=== PATIENT | male | born 1955 | race Caucasian/White ===

== ENCOUNTER 2018-06-28 17:56 | Emergency (ER) | payer BC ==
[2018-06-28 18:06] VITALS: BP 145/75
--- NOTE | 2018-06-28 18:14 | EDM.PDOC ---
ED HPI GENERAL MEDICAL PROBLEM - General Chief Complaint: Lower Extremity Injury/Pain Stated Complaint: INJURED ANKLE Time Seen by Provider: 06/28/18 17:57 Source of Information: Reports: Patient History Limitations: Reports: No Limitations - History of Present Illness INITIAL COMMENTS - FREE TEXT/NARRATIVE: History of present illness: []Patient was no prostate 2 hours ago and rolled his right ankle. He is unable to bear weight on it and has a large amount of swelling over the lateral malleolus. Patient admits to drinking prior to this happening and he did take 4 ibuprofen prior to coming to the ED. Review of systems: As per history of present illness and below otherwise all systems reviewed and negative. Past medical history: As per history of present illness and as reviewed below otherwise noncontributory. Surgical history: As per history of present illness and as reviewed below otherwise noncontributory. Social history: No reported history of drug or alcohol abuse. Family history: As per history of present illness and as reviewed below otherwise noncontributory. Physical exam: General: Well developed, well nourished in NAD HEENT: Atraumatic, normocephalic, pupils reactive, negative for conjunctival pallor or scleral icterus, mucous membranes moist, throat clear, neck supple, nontender, trachea midline. Lungs: Clear to auscultation, breath sounds equal bilaterally, chest nontender. Heart: S1S2, regular, negative for clicks, rubs, or JVD. Abdomen: NABS, Soft, nondistended, nontender. Negative for masses or hepatosplenomegaly. Negative for costovertebral tenderness. Pelvis: Stable nontender. Genitourinary: Deferred. Rectal: Deferred. Extremities: Right ankle with swelling over the lateral malleolus with tenderness, there are no open lesions, pulses are palpable and sensory is intact., negative for cords or calf pain. Neurovascular unremarkable. Neuro: Awake, alert, oriented. Cranial nerves II through XII unremarkable. Cerebellum unremarkable. Motor and sensory unremarkable throughout. Exam nonfocal. Skin:warm and dry Diagnostics: X-ray right ankle- Mild likely posttraumatic arthrosis of the margins of the tibiotalar ankle joint. No acute fracture. Small likely chronic avulsion ossicle at the tip of the lateral malleolus on the mortise view. Marginal spurring. Lateral periarticular soft tissue swelling may be acute injury related. Os peroneum. Therapeutics: Ankle boot and pain meds ED Course: Unremarkable Impression: Right Ankle sprain Prescriptions: None Plan: Ice elevation and wear splint as directed, follow up with orthopedics or primary care as needed. Definitive disposition and diagnosis as appropriate pending reevaluation and review of above. Right Ankle Pain Score (Numeric/FACES): 6 - Related Data Allergies Allergy/AdvReac Type Severity Reaction Status Date / Time No Known Allergies Allergy Verified 06/28/18 18:02 Home Meds: Home Meds Fluticasone/Vilanterol [Breo Ellipta 100-25 MCG Inhalation Kit] 1 puff INH DAILY 03/10/16 [History] Past Medical History HEENT History: Reports: None Cardiovascular History: Reports: None Respiratory History: Reports: COPD, Other (See Below) Other Respiratory History: nodes on lungs Gastrointestinal History: Reports: None Genitourinary History: Reports: None Musculoskeletal History: Reports: None Neurological History: Reports: None Psychiatric History: Reports: None Endocrine/Metabolic History: Reports: None Hematologic History: Reports: None Immunologic History: Reports: None Oncologic (Cancer) History: Reports: None Dermatologic History: Reports: None - Infectious Disease History Infectious Disease History: Reports: Chicken Pox, Measles, Mumps - Past Surgical History Head Surgeries/Procedures: Reports: None HEENT Surgical History: Reports: Tonsillectomy Male Surgical History: Reports: Other (See Below) Neurological Surgical History: Reports: Lumbar Spine, Other (See Below) Musculoskeletal Surgical History: Reports: Arthroscopic Knee, Other (See Below) Social & Family History - Family History Family Medical History: Unobtainable - Tobacco Use Smoking Status *Q: Never Smoker - Caffeine Use Caffeine Use: Reports: Coffee - Recreational Drug Use Recreational Drug Use: No Review of Systems - Review of Systems Review Of Systems: ROS reveals no pertinent complaints other than HPI. ED EXAM, GENERAL - Physical Exam Exam: See Below (See history of present illness) Course - Vital Signs Last Recorded V/S: Last Vital Signs Temp 97.8 F 06/28/18 18:03 Pulse 76 06/28/18 18:03 Resp 17 06/28/18 18:03 BP 145/75 H 06/28/18 18:03 Pulse Ox 93 L 06/28/18 18:03 - Orders/Labs/Meds Orders: Active Orders 24 hr Category Date Time Status Splinting [RC] ASDIRECTED Care 06/28/18 18:34 Ordered Ankle Min 3V Rt [CR] Stat Exams 06/28/18 18:06 Taken Departure - Departure Time of Disposition: 18:37 Disposition: Home, Self-Care 01 Condition: Good Clinical Impression: Right ankle sprain Qualifiers: Encounter type: initial encounter Involved ligament of ankle: unspecified ligament Qualified Code(s): S93.401A - Sprain of unspecified ligament of right ankle, initial encounter - Discharge Information *PRESCRIPTION DRUG MONITORING PROGRAM REVIEWED*: No *COPY OF PRESCRIPTION DRUG MONITORING REPORT IN PATIENT AMISH: No Referrals: PCP,None [Primary Care Provider] - Forms: ED Department Discharge Additional Instructions: The following information is given to patients seen in the emergency department who are being discharged to home. This information is to outline your options for follow-up care. We provide all patients seen in our emergency department with a follow-up referral. The need for follow-up, as well as the timing and circumstances, are variable depending upon the specifics of your emergency department visit. If you don't have a primary care physician on staff, we will provide you with a referral. We always advise you to contact your personal physician following an emergency department visit to inform them of the circumstance of the visit and for follow-up with them and/or the need for any referrals to a consulting specialist. The emergency department will also refer you to a specialist when appropriate. This referral assures that you have the opportunity for follow-up care with a specialist. All of these measure are taken in an effort to provide you with optimal care, which includes your follow-up. Under all circumstances we always encourage you to contact your private physician who remains a resource for coordinating your care. When calling for follow-up care, please make the office aware that this follow-up is from your recent emergency room visit. If for any reason you are refused follow-up, please contact the [facility] Emergency Department at and asked to speak to the emergency department charge nurse. [facility] - [facility] Professional [address], [address] [place] [address] [facility] [address] [place] [phone] - My Orders Last 24 Hours: My Active Orders 06/28/18 18:06 Ankle Min 3V Rt [CR] Stat 06/28/18 18:34 Splinting [RC] ASDIRECTED - Assessment/Plan Last 24 Hours: My Active Orders 06/28/18 18:06 Ankle Min 3V Rt [CR] Stat 06/28/18 18:34 Splinting [RC] ASDIRECTED
--- NOTE | 2018-06-30 11:09 | CR ---
EXAM DATE: 06/28/18 PATIENT'S AGE: 63 Patient: VERNON DUNN Facility: [facility] Site . Site : 1955 Study: XRay-Extremity Right ankle [id number]/9/2019 6:23:12 PM Ordering Physician: Armando Blount Final Report: INDICATION: Pain after fall. TECHNIQUE: Three views right ankle. IMPRESSION: Mild likely posttraumatic arthrosis of the margins of the tibiotalar ankle joint. No acute fracture. Small likely chronic avulsion ossicle at the tip of the lateral malleolus on the mortise view. Marginal spurring. Lateral periarticular soft tissue swelling may be acute injury related. Os peroneum. Dictated by Segundo Palacios MD @ Jun 28 2018 6:31PM Signed by: Segundo Palacios MD @06/28/2018 6:32:42 PM (Electronic Signature) Report Signed by Proxy. MTDD
== END 2018-06-28 18:50 | disposition home or self-care (01) ==
LOC: MW.ED 17:56
DX: S93.401A Sprain of unspecified ligament of right ankle, initial encounter (principal); Z79.899 Other long term (current) drug therapy; X50.1XXA Overexertion from prolonged static or awkward postures, initial encounter
CPT/HCPCS: 73610-26-RT; 73610-RT; 99283; 99283-25